=== PATIENT | female | born 1970 | race Caucasian/White ===

== ENCOUNTER 2022-07-02 07:39 | Day surgery (SDC) | payer OTHER ==
[~2022-07-02] VITALS: Ht 162.6 cm; Wt 72.5 kg
[~2022-07-02 07:39] MED LIST: ADVI200T17 PO; IBUP200C89 PO; JOINCAP2 PO; MAGN200T PO; RIBO400T PO; VITMTA PO; ceFAZolin SOD 2 GM in IV 1 EA IV ONE
[2022-07-02] MEDS ORDERED: LR 1,000 ML IV SCH ×2 (07:50→11:35)
[2022-07-02] MEDS ORDERED: SCOPOLAMINE 1MG TRANSDERMAL PATCH TOP ONE (08:45)
[2022-07-02] MEDS ORDERED: ONDANSETRON 4MG 2ML VIAL As Ordered ONE (08:56)
[2022-07-02] MEDS ORDERED: LIDOCAINE 2% 100MG/5ML SDV (FOR ANES.) As Ordered ONE (08:56)
[2022-07-02] MEDS ORDERED: KETOROLAC 60MG 2ML VIAL As Ordered ONE (08:56)
[2022-07-02] MEDS ORDERED: propofoL 200 MG/20 ML VIAL As Ordered ONE (08:56)
[2022-07-02] MEDS ORDERED: MIDAZOLAM INJ 2MG/2ML VIAL As Ordered ONE (08:57)
[2022-07-02] MEDS ORDERED: fentaNYL 100 MCG/2 ML INJECTION As Ordered ONE (08:57)
[2022-07-02] MEDS ORDERED: BUPIVACAINE HCL 0.5% 30ML VIAL As Ordered ONE (09:23)
[2022-07-02] MEDS ORDERED: LIDOCAINE 1% SDV 30ML VIAL As Ordered ONE (09:23)
[2022-07-02] MEDS ORDERED: oxyCODONE 5MG TAB PO PRN (11:35)
[2022-07-02] MEDS ORDERED: ONDANSETRON 4MG 2ML VIAL IV PRN (11:35)
[2022-07-02] MEDS ORDERED: fentaNYL 100 MCG/2 ML INJECTION IV PRN (11:35)
[2022-07-02] MEDS ORDERED: HYDROMORPHONE HCL 0.5 MG/ 0.5 ML SYRINGE IV PRN (11:35)
[2022-07-02 12:45] VITALS: BP 101/73
== END 2022-07-02 12:50 | disposition home or self-care (01) ==
LOC: M SDC 07:39
PROVIDERS: ATTEND Podiatrist Foot & Ankle Surgery
DX: M20.12 Hallux valgus (acquired), left foot (principal); M21.612 Bunion of left foot; K21.9 Gastro-esophageal reflux disease without esophagitis; R51.9 Headache, unspecified; Z79.899 Other long term (current) drug therapy
CPT/HCPCS: 28299; 28308; 76000; 88300; C1713; J1100; J2405

== ENCOUNTER 2022-07-11 17:36 | Emergency (ER) | payer OTHER ==
[~2022-07-11] VITALS: Ht 162.6 cm; Wt 69.5 kg
[~2022-07-11 17:36] MED LIST changes: -ceFAZolin SOD 2 GM in IV 1 EA IV ONE
[2022-07-11 17:39] VITALS: BP 121/78
[2022-07-11] MEDS ORDERED: CEPHALEXIN 500 MG CAP PO ONE (19:40)
[2022-07-11] MEDS ORDERED: CEPH500C PO (19:43)
== END 2022-07-11 20:00 | disposition home or self-care (01) ==
LOC: M ED 17:36
DX: L03.116 Cellulitis of left lower limb (principal)

== ENCOUNTER 2022-10-16 07:19 | Day surgery (SDC) | payer OTHER ==
[~2022-10-16] VITALS: Ht 162.6 cm; Wt 73.4 kg
[~2022-10-16 07:19] MED LIST changes: +CEPH500C PO; +TOPI25TA10 PO; +ceFAZolin SOD 2 GM in IV 1 EA IV ONE
[2022-10-16] MEDS ORDERED: LR 1,000 ML IV SCH ×2 (08:10→11:20)
[2022-10-16] MEDS ORDERED: LIDOCAINE 2% 100MG/5ML SDV (FOR ANES.) As Ordered ONE (08:26)
[2022-10-16] MEDS ORDERED: ONDANSETRON 4MG 2ML VIAL As Ordered ONE (08:26)
[2022-10-16] MEDS ORDERED: propofoL 200 MG/20 ML VIAL As Ordered ONE (08:26)
[2022-10-16] MEDS ORDERED: KETOROLAC 60MG 2ML VIAL As Ordered ONE (08:27)
[2022-10-16] MEDS ORDERED: MIDAZOLAM INJ 2MG/2ML VIAL As Ordered ONE (08:27)
[2022-10-16] MEDS ORDERED: fentaNYL 100 MCG/2 ML INJECTION As Ordered ONE (08:27)
[2022-10-16] MEDS ORDERED: LIDOCAINE 1% SDV 30ML VIAL As Ordered ONE (08:50)
[2022-10-16] MEDS ORDERED: BUPIVACAINE HCL 0.5% 30ML VIAL As Ordered ONE (08:51)
[2022-10-16] MEDS ORDERED: ACETAMINOPHEN 1000MG 100ML IV BAG As Ordered ONE (10:17)
[2022-10-16] MEDS ORDERED: ONDANSETRON 4MG 2ML VIAL IV PRN (11:20)
[2022-10-16] MEDS ORDERED: fentaNYL 100 MCG/2 ML INJECTION IV PRN (11:20)
[2022-10-16] MEDS ORDERED: HYDROMORPHONE HCL 0.5 MG/ 0.5 ML SYRINGE IV PRN (11:20)
[2022-10-16] MEDS ORDERED: oxyCODONE 5MG TAB PO PRN (11:20)
[2022-10-16 12:45] VITALS: BP 109/70
== END 2022-10-16 09:35 | disposition home or self-care (01) ==
LOC: M SDC 07:19
PROVIDERS: ATTEND Podiatrist Foot & Ankle Surgery
DX: M20.11 Hallux valgus (acquired), right foot (principal); M21.611 Bunion of right foot; R12 Heartburn; M19.90 Unspecified osteoarthritis, unspecified site; Z86.69 Personal history of other diseases of the nervous system and sense organs; Z79.899 Other long term (current) drug therapy
CPT/HCPCS: 28299; 28308; 88300; C1713; J0131; J0690; J1100; J1885; J2250; J2405; J3010; S0020

== ENCOUNTER 2022-11-03 10:41 | Emergency (ER) | payer OTHER ==
[~2022-11-03] VITALS: Ht 162.6 cm; Wt 157.0 kg
[~2022-11-03 10:41] MED LIST changes: -ceFAZolin SOD 2 GM in IV 1 EA IV ONE
[2022-11-03 11:00] VITALS: BP 112/64
[2022-11-03] MEDS ORDERED: NS 1,000 ML IV ONE (12:20)
[2022-11-03 13:12] LABS: BASO # 0.1 10^3/uL (0.0-0.2); BASO % 0.8 % (0.0-1.0); EOS # 0.1 10^3/uL (0.0-0.5); EOS % 1.9 % (0.0-3.0); HEMATOCRIT 41.6 % (36.0-47.0); HEMOGLOBIN 14.1 g/dl (12.0-15.5); LYMPH # 1.8 10^3/uL (1.5-5.0); LYMPH % 24.6 % (24.0-44.0); MEAN CORPUSCULAR HEMOGLOBIN 29.3 pg (27.0-33.0); MEAN CORPUSCULAR HGB CONC 33.9 g/dl (32.0-36.5); MEAN CORPUSCULAR VOLUME 86.5 fl (80.0-96.0); MONO # 0.4 10^3/uL (0.0-0.8); MONO % 5.1 % (2.0-8.0); NEUTROPHILS % 67.3 % (36.0-66.0); PLATELET COUNT, AUTOMATED 351 10^3/uL (150-450); RED BLOOD COUNT 4.81 10^6/uL (4.00-5.40); WHITE BLOOD COUNT 7.4 10^3/uL (4.0-10.0)
[2022-11-03 13:38] LABS: LIPASE 42 U/L (12-53)
[2022-11-03 13:40] LABS: ALBUMIN 3.9 G/DL (3.2-5.2); ALKALINE PHOSPHATASE 80 U/L (46-116); ALT/SGPT 52 U/L (7.0-40); AST/SGOT 25 U/L (<34); BILIRUBIN,DIRECT 0.2 MG/DL (<0.4); BILIRUBIN,TOTAL 0.8 MG/DL (0.3-1.2); BLOOD UREA NITROGEN 13 MG/DL (9-23); CALCIUM LEVEL 9.6 MG/DL (8.5-10.1); CARBON DIOXIDE LEVEL 27 MMOL/L (20-31); CHLORIDE LEVEL 104 MMOL/L (98-107); CREATININE FOR GFR 0.75 MG/DL (0.55-1.30); GLOMERULAR FILTRATION RATE > 60.0 (>51); GLUCOSE, FASTING 94 MG/DL (60-100); POTASSIUM SERUM 4.4 MMOL/L (3.5-5.1); SODIUM LEVEL 138 MMOL/L (136-145); TOTAL PROTEIN 6.5 G/DL (5.7-8.2)
[2022-11-03] MEDS ORDERED: KETOROLAC 30 MG/ML 1ML VIAL IV ONE (14:00)
[2022-11-03] MEDS ORDERED: KETO10TAB PO (15:05)
== END 2022-11-03 15:30 | disposition home or self-care (01) ==
LOC: M ED 10:41 → EDBD 10:41 → M ED 15:30
DX: M51.26 Other intervertebral disc displacement, lumbar region (principal); M51.27 Other intervertebral disc displacement, lumbosacral region; M48.061 Spinal stenosis, lumbar region without neurogenic claudication; M19.90 Unspecified osteoarthritis, unspecified site; Z79.810 Long term (current) use of selective estrogen receptor modulators (SERMs); Z79.899 Other long term (current) drug therapy
CPT/HCPCS: 72131; 74176; 80048; 80076; 81001; 83690; 85025; 93041; 96361; 96374; 99284; J1885

== ENCOUNTER → 2022-12-22 | Outpatient (CLI) | payer OTHER ==
[~2022-12-22] MED LIST changes: +KETO10TAB PO
== END ==
LOC: M WHC 14:14
PROVIDERS: ATTEND Physician Assistant
DX: R92.2 Inconclusive mammogram (principal)

== ENCOUNTER → 2023-01-12 | Outpatient (CLI) | payer OTHER | LOC: M WHC 13:52 | PROVIDERS: ATTEND Physician Assistant | DX: Z12.31 Encounter for screening mammogram for malignant neoplasm of breast (principal) | CPT/HCPCS: 77065; G0279 ==

== ENCOUNTER → 2023-04-21 | Outpatient (REF) | payer OTHER ==
[2023-04-21 16:54] LABS: BASO # 0.1 10^3/uL (0.0-0.2); EOS # 0.1 10^3/uL (0.0-0.5); EOS % 2.3 % (0.0-3.0); HEMATOCRIT 44.8 % (36.0-47.0); HEMOGLOBIN 14.8 g/dl (12.0-15.5); LYMPH # 2.3 10^3/uL (1.5-5.0); LYMPH % 37.7 % (24.0-44.0); MEAN CORPUSCULAR HEMOGLOBIN 29.8 pg (27.0-33.0); MEAN CORPUSCULAR VOLUME 90.1 fl (80.0-96.0); MONO # 0.4 10^3/uL (0.0-0.8); NEUTROPHILS # 3.2 10^3/uL (1.5-8.5); NEUTROPHILS % 52.8 % (36.0-66.0); PLATELET COUNT, AUTOMATED 335 10^3/uL (150-450); RED BLOOD COUNT 4.97 10^6/uL (4.00-5.40)
[2023-04-21 17:10] LABS: COMPLEMENT C3 124.3 MG/DL (90.0-170.0); COMPLEMENT C4 45.5 MG/DL (12-36)
== END ==
LOC: M SFHCRHEU 15:07
PROVIDERS: ATTEND Internal Medicine
DX: R76.8 Other specified abnormal immunological findings in serum (principal); R04.0 Epistaxis

== ENCOUNTER → 2023-07-21 | Outpatient (CLI) | payer OTHER | LOC: M RAD 07:11 | PROVIDERS: ATTEND Nurse Practitioner Family | DX: R10.11 Right upper quadrant pain (principal); K76.0 Fatty (change of) liver, not elsewhere classified ==

== ENCOUNTER 2023-08-21 12:03 | Day surgery (SDC) | payer OTHER ==
[~2023-08-21] VITALS: Ht 160 cm; Wt 71.0 kg
[~2023-08-21 12:03] MED LIST changes: +AMIT10TA7 PO; +B-2100TA PO; +CLOB0.057; +D 50CAP2 PO; +ESZO1TAB4 PO; +HYDR-3363 PO; +LIDO5OIN19; +MAGN400T33 PO; +MULT-90 PO; +OLOP5DRO17; +PANT40TA29 PO; +PROC1AER16; +TRIA1CR80
[2023-08-21] MEDS: NS 1,000 ML IV ONE (12:13)
[2023-08-21] MEDS ORDERED: propofoL 200 MG/20 ML VIAL As Ordered ONE (13:11)
[2023-08-21 14:20] VITALS: BP 100/64; TEMP 97.9; O2SAT 100
== END 2023-08-21 14:24 | disposition home or self-care (01) ==
LOC: M OPP 12:03
PROVIDERS: ATTEND Internal Medicine Gastroenterology
DX: K21.00 Gastro-esophageal reflux disease with esophagitis, without bleeding (principal); K29.70 Gastritis, unspecified, without bleeding; G47.30 Sleep apnea, unspecified; Z99.89 Dependence on other enabling machines and devices; Z79.52 Long term (current) use of systemic steroids; Z79.899 Other long term (current) drug therapy